=== PATIENT | male | born 1965 | race Caucasian/White ===

== ENCOUNTER 2017-09-22 03:39 | Inpatient (IN) | payer OTHER ==
[2017-09-22] VITALS (7 sets, daily range): BP systolic 110–135; BP diastolic 68–99
[~2017-09-22] VITALS: Ht 182.9 cm; Wt 65.9 kg
[2017-09-22] MEDS ORDERED: SODIUM CHLORIDE 0.9% 1,000 ML IV ONE (03:47)
[2017-09-22] MEDS ORDERED: DILTIAZEM 5 MG/ML, 5ML IVPush ONE (04:00)
[2017-09-22] MEDS ORDERED: SODIUM CHLORIDE FLUSH 10ML SYR IVF ONE ×2 (04:00→04:30)
[2017-09-22 04:11] LABS: BASOPHILS # (AUTO) 0.04 x10^3/uL (0-0.1); BASOPHILS % (AUTO) 1 % (0-1); EOSINOPHILS # (AUTO) 0.42 x10^3/uL (0-0.4); EOSINOPHILS % (AUTO) 5 % (1-7); LYMPHOCYTES # (AUTO) 1.27 x10^3/uL (1-3.4); LYMPHOCYTES % (AUTO) 14 % (22-44); MD NO; MEAN CORPUSCULAR HEMOGLOBIN 33.9 pg (27.5-34.5); MEAN CORPUSCULAR HGB CONC 34.4 g/dL (33.2-36.2); MEAN CORPUSCULAR VOLUME 98.5 fL (81-97); MEAN PLATELET VOLUME 8.7 fL (7.4-10.4); MONOCYTES # (AUTO) 0.79 x10^3/uL (0.2-0.8); MONOCYTES % (AUTO) 9 % (2-9); NEUTROPHILS # (AUTO) 6.32 x10^3/uL (1.8-6.8); NEUTROPHILS % (AUTO) 71 % (42-75); PLATELET COUNT 155 x10^3/uL (130-400); RED BLOOD COUNT 4.85 x10^6/uL (4.38-5.82); RED CELL DISTRIBUTION WIDTH 14.1 % (9.4-14.8)
[2017-09-22] MEDS ORDERED: DILTIAZEM 125 MG in DEXTROSE 5% 100 ML IV SCH (04:11)
[2017-09-22] MEDS ORDERED: ASPIRIN 81 MG TABLET CHEW ONE (04:18)
[2017-09-22 04:20] LABS: PROTHROMBIN TIME 10.4 Seconds (9.6-11.5)
[2017-09-22] MEDS ORDERED: ONDANSETRON 2MG/ML, 2ML ONE (04:20)
[2017-09-22 04:21] LABS: ALANINE AMINOTRANSFERASE 95 U/L (12-78); ALBUMIN 3.5 g/dL (3.4-5.0); ANION GAP 14 mmol/L (5-15); CALCIUM 7.9 mg/dL (8.5-10.1); CHLORIDE 109 mmol/L (98-107); CREATININE 0.97 mg/dL (0.7-1.3)
[2017-09-22] MEDS ORDERED: MORPHINE SULFATE 4 MG/ML, 1ML ONE (04:24)
[2017-09-22 04:25] LABS: ALKALINE PHOSPHATASE 125 U/L (45-117); BILIRUBIN,TOTAL 0.5 mg/dL (0.2-1.0); TOTAL PROTEIN 7.4 g/dL (6.4-8.2); TROPONIN I < 0.015 ng/mL (0.000-0.045)
[2017-09-22] MEDS ORDERED: MORPHINE SULFATE 4 MG/ML, 1ML IVPush PRN (04:30)
[2017-09-22] MEDS ORDERED: DILTIAZEM 125 MG in SODIUM CHLORIDE 0.9% 100 ML IV SCH (04:30)
[2017-09-22] MEDS ORDERED: SODIUM CHLORIDE 0.9% 1,000ML IVBOLUS ONE (04:30)
[2017-09-22] MEDS ORDERED: DILTIAZEM 5 MG/ML, 5ML IV ONE (04:30)
[2017-09-22] MEDS ORDERED: ASPIRIN 81 MG TABLET CHEW PO ONE (04:30)
[2017-09-22] MEDS ORDERED: ONDANSETRON 2MG/ML, 2ML IVPush ONE (04:30)
[2017-09-22] MEDS ORDERED: methylPREDNISolone SOD SUCC 125 MG/2 ML ONE (04:39)
[2017-09-22] MEDS ORDERED: methylPREDNISolone SOD SUCC 125 MG/2 ML IVPush ONE (05:00)
[2017-09-22] MEDS ORDERED: SODIUM CHLORIDE 0.9% 1,000 ML IV SCH (05:12)
[2017-09-22] MEDS ORDERED: ONDANSETRON 2MG/ML, 2ML IVPush PRN (05:30)
[2017-09-22] MEDS ORDERED: ENALAPRILAT 1.25 MG/ML, 2ML IVPush PRN (05:30)
[2017-09-22] MEDS ORDERED: morphine SULFATE 10 MG/ML, 1ML IVPush PRN (05:30)
[2017-09-22] MEDS ORDERED: ACETAMINOPHEN 325 MG TABLET PO PRN (05:30)
[2017-09-22] MEDS ORDERED: PROMETHAZINE 25 MG/ML, 1ML IM PRN (05:30)
[2017-09-22] MEDS ORDERED: ONDANSETRON ODT 4 MG PO PRN (05:30)
[2017-09-22] MEDS ORDERED: BISACODYL 10 MG SUPP PR PRN (05:30)
[2017-09-22] MEDS ORDERED: DOCUSATE 100 MG CAPSULE PO PRN (05:30)
[2017-09-22] MEDS ORDERED: POLYETHYLENE GLYCOL 17 GM PACKET PO PRN (05:30)
[2017-09-22] MEDS ORDERED: OXYcodone IR 5MG TABLET PO PRN (05:30)
[2017-09-22] MEDS ORDERED: DILTIAZEM 125 MG in SODIUM CHLORIDE 0.9% 100 ML IV PRN (05:30)
[2017-09-22] MEDS ORDERED: HEPARIN 25,000 UNITS/500ML PMX 500 ML IV PRN (06:30)
[2017-09-22 06:41] LABS: HEMOGLOBIN A1C 5.2 % (4.2-6.3)
[2017-09-22 06:52] LABS: FREE T4 (FREE THYROXINE) 1.03 ng/dL (0.76-1.46); THYROID STIMULATING HORMONE 1.19 mIU/L (0.358-3.740)
[2017-09-22] MEDS: HEPARIN 5,000 UNITS/ML, 1ML IV ONE ×2 (07:25→08:27)
[2017-09-22 08:16] LABS: MICROSCOPIC NOT IND
[2017-09-22 08:21] LABS: CULTURE INDICATED? NO
[2017-09-22] MEDS: NICOTINE 14MG/24 HR PATCH.TD24 TD SCH (08:30)
[2017-09-22 09:45] LABS: TROPONIN I < 0.015 ng/mL (0.000-0.045)
[2017-09-22] MEDS ORDERED: MAGNESIUM SULFATE PMX 2GM/50ML 50 ML IV ONE (13:30)
[2017-09-22] MEDS ORDERED: ERGOCALCIFEROL 50,000 UNIT CAPSULE PO SCH (13:30)
[2017-09-22] MEDS: METOPROLOL TARTRATE 25 MG TABLET PO SCH ×2 (14:39→18:38)
[2017-09-22 15:31] LABS: TROPONIN I < 0.015 ng/mL (0.000-0.045)
[2017-09-22] MEDS: HEPARIN 5,000 UNITS/ML, 1ML IV PRN ×2 (16:41→23:48)
[2017-09-22] MEDS ORDERED: ALBUTEROL/IPRATROPIUM 2.5MG/0.5MG, 3 ML NPPB PRN (17:00)
[2017-09-22] MEDS: DILTIAZEM 60 MG TABLET PO SCH ×2 (17:30→23:24)
[2017-09-22] MEDS ORDERED: DILTIAZEM 30 MG TABLET ONE (17:34)
[2017-09-22] MEDS ORDERED: OMNIPAQUE 350 MG/ML, 100ML BOTTLE ONE (18:07)
[2017-09-22] MEDS: ALBUTEROL/IPRATROPIUM 2.5MG/0.5MG, 3 ML NPPB SCH (19:04)
[2017-09-22] MEDS: MAGNESIUM CHLORIDE 64 MG TABLET.DR PO SCH (21:02)
[2017-09-23 00:23] VITALS: BP 107/60
[2017-09-23 03:28] VITALS: BP_SYST 125; BP_SYST 132; BP_DIAS 56; BP_DIAS 74
[2017-09-23 06:05] LABS: BASOPHILS # (AUTO) 0.03 x10^3/uL (0-0.1); BASOPHILS % (AUTO) 1 % (0-1); EOSINOPHILS % (AUTO) 0 % (1-7); LYMPHOCYTES # (AUTO) 0.73 x10^3/uL (1-3.4); LYMPHOCYTES % (AUTO) 12 % (22-44); MD NO; MEAN CORPUSCULAR HEMOGLOBIN 33.7 pg (27.5-34.5); MEAN CORPUSCULAR HGB CONC 33.8 g/dL (33.2-36.2); MEAN CORPUSCULAR VOLUME 99.8 fL (81-97); MEAN PLATELET VOLUME 9.4 fL (7.4-10.4); MONOCYTES % (AUTO) 13 % (2-9); NEUTROPHILS # (AUTO) 4.55 x10^3/uL (1.8-6.8); NEUTROPHILS % (AUTO) 74 % (42-75); PLATELET COUNT 116 x10^3/uL (130-400); RED BLOOD COUNT 3.99 x10^6/uL (4.38-5.82); RED CELL DISTRIBUTION WIDTH 13.9 % (9.4-14.8)
[2017-09-23 06:13] LABS: ALANINE AMINOTRANSFERASE 60 U/L (12-78); ALBUMIN 2.9 g/dL (3.4-5.0); ANION GAP 8 mmol/L (5-15); CALCIUM 8.4 mg/dL (8.5-10.1); CHLORIDE 106 mmol/L (98-107); CHOLESTEROL, TOTAL 140 mg/dL (140-239); CREATININE 0.68 mg/dL (0.7-1.3)
[2017-09-23 06:16] LABS: ALKALINE PHOSPHATASE 88 U/L (45-117); BILIRUBIN,TOTAL 0.7 mg/dL (0.2-1.0); CHOL/HDL RATIO 2.3; HDL CHOL % 44 % (26-37); HDL CHOLESTEROL (DIRECT) 62 mg/dL (40-60); LDL CHOLESTEROL,CALCULATED 63 mg/dL (54-169); TOTAL PROTEIN 6.1 g/dL (6.4-8.2); TRIGLYCERIDES 74 mg/dL (50-200); VLDL CHOLESTEROL 15 mg/dL (0-25)
[2017-09-23] MEDS: HEPARIN 5,000 UNITS/ML, 1ML IV PRN (06:40)
[2017-09-23] MEDS: ALBUTEROL/IPRATROPIUM 2.5MG/0.5MG, 3 ML NPPB SCH ×2 (06:47→11:20)
[2017-09-23 08:11] VITALS: BP 127/72
[2017-09-23] MEDS: MAGNESIUM CHLORIDE 64 MG TABLET.DR PO SCH ×2 (09:05→20:43)
[2017-09-23] MEDS: NICOTINE 14MG/24 HR PATCH.TD24 TD SCH (09:05)
[2017-09-23] MEDS: METOPROLOL TARTRATE 25 MG TABLET PO SCH ×2 (09:05→18:13)
[2017-09-23 14:36] VITALS: BP 121/71
[2017-09-23 19:50] VITALS: BP 148/65
[2017-09-23] MEDS: APIXABAN 5 MG TABLET PO SCH (20:42)
[2017-09-24 02:00] VITALS: BP 150/87
[2017-09-24 04:54] LABS: ANION GAP 7 mmol/L (5-15); CHLORIDE 109 mmol/L (98-107); CREATININE 0.79 mg/dL (0.7-1.3)
[2017-09-24 05:49] VITALS: BP 150/89
[2017-09-24] MEDS: METOPROLOL TARTRATE 25 MG TABLET PO SCH (05:54)
[2017-09-24 06:48] VITALS: BP 147/81
[2017-09-24] MEDS: MAGNESIUM CHLORIDE 64 MG TABLET.DR PO SCH (08:50)
[2017-09-24] MEDS: APIXABAN 5 MG TABLET PO SCH (08:50)
[2017-09-24] MEDS: NICOTINE 14MG/24 HR PATCH.TD24 TD SCH (08:50)
[2017-09-24] MEDS ORDERED: MAGNESIUM SULF. PMX 20GM/500ML 500 ML IV PRN (10:00)
[2017-09-24] MEDS ORDERED: CEFTRIAXONE PMX 2GM/50ML 50 ML IV SCH (11:00)
[2017-09-24] MEDS ORDERED: MAGNESIUM SULFATE PMX 2GM/50ML 50 ML IVPB ONE (11:00)
[2017-09-24] MEDS ORDERED: Magnesium Chloride PO (12:19)
[2017-09-24] MEDS ORDERED: METO25TA35 PO (12:19)
[2017-09-24] MEDS ORDERED: CEFD300C37 PO (12:19)
[2017-09-24] MEDS ORDERED: ALBU18HF INH (12:19)
[2017-09-24] MEDS ORDERED: ACET325T14 PO (12:19)
[2017-09-24] MEDS ORDERED: ERGO500017 PO (12:19)
[2017-09-24] MEDS ORDERED: APIX5TAB PO (12:19)
[2017-09-24] MEDS ORDERED: MAGN64TA7 PO (12:21)
[2017-09-24] MEDS ORDERED: DOXY100T10 PO (12:21)
[2017-09-24] MEDS ORDERED: DOXYCYCLINE 100MG TABLET PO SCH (12:30)
== END 2017-09-24 13:50 | disposition home or self-care (01) | DRG 308 ==
LOC: ED 04:21 → EDIP 04:41 → 5SO 05:47
PROVIDERS: ADMIT Internal Medicine; ATTEND Internal Medicine
DX: I48.91 Unspecified atrial fibrillation (principal); J18.9 Pneumonia, unspecified organism; D68.69 Other thrombophilia; E87.2 Acidosis; J44.0 Chronic obstructive pulmonary disease with (acute) lower respiratory infection; D75.89 Other specified diseases of blood and blood-forming organs; E55.9 Vitamin D deficiency, unspecified; J44.9 Chronic obstructive pulmonary disease, unspecified; F17.200 Nicotine dependence, unspecified, uncomplicated; K76.0 Fatty (change of) liver, not elsewhere classified; Z80.1 Family history of malignant neoplasm of trachea, bronchus and lung; Z80.3 Family history of malignant neoplasm of breast; Z80.9 Family history of malignant neoplasm, unspecified; Z71.6 Tobacco abuse counseling
CPT/HCPCS: 36415; 99291; J7620; 0399T; 71045; 71260; 76700; 80048; 80053; 80061; 81003; 82306; 82607; 83036; 83735; 83880; 84439; 84443; 84484; 85025; 85520; 85610; 85730; 86705; 86706; 86709; 86803; 87340; 93005; 93306; 94640; 96365; 96375; J1644; J2405; Q9967; J2930; J3475; J7030

== ENCOUNTER 2018-01-09 00:49 | Emergency (ER) | payer SELFPAY ==
[~2018-01-09] VITALS: Ht 182.9 cm; Wt 66.6 kg
[~2018-01-09 00:49] MED LIST: ACET325T14 PO; ALBU18HF INH; APIX5TAB PO; CEFD300C37 PO; DOXY100T10 PO; ERGO500017 PO; MAGN64TA7 PO; METO25TA35 PO; Magnesium Chloride PO
[2018-01-09 00:52] VITALS: BP 140/93
[2018-01-09] MEDS ORDERED: ACETAMINOPHEN 500 MG TABLET PO ONE (01:30)
[2018-01-09] MEDS ORDERED: ACETAMINOPHEN 500 MG TABLET ONE (02:20)
== END 2018-01-09 03:16 | disposition home or self-care (01) ==
LOC: ED 03:00
DX: S52.592A Other fractures of lower end of left radius, initial encounter for closed fracture (principal); S42.031A Displaced fracture of lateral end of right clavicle, initial encounter for closed fracture; I48.91 Unspecified atrial fibrillation; F17.200 Nicotine dependence, unspecified, uncomplicated; W19.XXXA Unspecified fall, initial encounter; Y93.89 Activity, other specified; Y99.8 Other external cause status; Y92.59 Other trade areas as the place of occurrence of the external cause
CPT/HCPCS: 29125; 99284